=== PATIENT | male | born 1945 | race Caucasian/White ===

== ENCOUNTER → 2023-10-11 | Outpatient (CLI) | payer MEDICARE ==
--- NOTE | 2023-10-11 08:47 | XR ---
EXAMINATION TYPE: XR chest 2V DATE OF EXAM: 10/11/2023 COMPARISON: NONE HISTORY: Shortness of breath TECHNIQUE: Frontal and lateral views of the chest are obtained. FINDINGS: Scattered senescent parenchymal changes noted. Hyperinflation compatible with COPD. No evidence for infiltrate. No evidence for atelectasis. Heart size is stable. Mediastinal structures are stable and grossly unremarkable. No evidence for hilar prominence. Degenerative changes dorsal spine. IMPRESSION: 1. No evidence for acute pulmonary disease.
== END | disposition home or self-care (01) ==
LOC: RADXRMAIN 08:29
PROVIDERS: ATTEND Internal Medicine
DX: J45.909 Unspecified asthma, uncomplicated (principal); R05.9 Cough, unspecified
CPT/HCPCS: 71046

== ENCOUNTER → 2024-01-09 | Outpatient (CLI) | payer MEDICARE ==
[2024-01-09 23:27] LABS: Alternaria alternata IgE <0.10 kU/L; Aspergillus fumagatus IgE <0.10 kU/L; Birch IgE <0.10 kU/L; Cat Epith & Dander IgE 9.13 kU/L; Cladosporian herbarum IgE <0.10 kU/L; Cockroach IgE 0.19 kU/L; Dermato. farinae IgE 1.14 kU/L; Dog Dander IgE 0.22 kU/L; Elm IgE 0.13 kU/L; Maple (Box Elder) IgE 0.63 kU/L; Ragweed,Common IgE <0.10 kU/L; Red Top (Bentgrass) IgE 1.94 kU/L
== END | disposition home or self-care (01) ==
LOC: LABWHC1 10:39
PROVIDERS: ATTEND Internal Medicine Critical Care Medicine
DX: J45.30 Mild persistent asthma, uncomplicated (principal)
CPT/HCPCS: 36415; 82785; 86003

== ENCOUNTER → 2024-03-26 | Outpatient (CLI) | payer MEDICARE ==
--- NOTE | 2024-04-01 06:15 | P.PCN ---
Date of Procedure: 03/26/24 Operative Findings: Home sleep study reports Date of service is 03/26/2024 Pertinent history 78-year-old male patient with known history of obstructive sleep apnea who has been maintained on CPAP therapy and over the years the patient was treated with a CPAP pressure of 10 cm of water. He is using an older generation [employer] CPAP unit and is using a comfort gel nasal mask. The patient was interested in updating his CPAP machine. The home sleep study was ordered to reestablish diagnosis and proceed with ongoing treatment. He also has history of mild intermittent bronchial asthma and allergies. Physical findings The patient is weighing 214 pounds with a body mass index of 34.5 Technical description The [employer] ApneaLink system was used to complete his home sleep study. This is a type III home sleep study evaluation. The total recording duration was 7 hours and 59 minutes. The study started at 11:10 PM and ended at 7:09 AM. There was a total of 3 hours and 58 minutes of flow monitoring and 7 hours and 45 minutes of oxygen saturation monitoring. Results Respiratory analysis showed a total of 8 obstructive apneas and 47 obstructive hypopneas. Noted the flow signal was lost during the study and there was only a total of 3 hours and 58 minutes of flow monitoring. Nevertheless, the patient was confirmed to have obstructive sleep apnea and the resulting AHI was 13.9. Oxygenation analysis The average pulse ox during sleep was 93% with a minimum pulse ox of 88%. No major desaturations encountered Cardiac summary Average heart rate was 55 with a minimum heart rate of 49 and the maximum heart rate of 74 Assessment Obstructive sleep apnea with an AHI of 13.9 Chronic hypersomnia with an [place] score of 12 Mild intermittent bronchial asthma Hyperlipidemia Migraines Depression Hypertension Environmental allergies Plan Proceed with CPAP therapy. The patient is going to be offered an APAP machine pressures of 5/10 cm of water with a C-Flex of 3. The patient will be offered an AirFit N20 nasal mask medium size. The patient was seen back in 30 to 90 days to assess clinical response and compliancy.
== END ==
LOC: 3 N SLEEP 11:05
PROVIDERS: ATTEND Internal Medicine Critical Care Medicine
DX: G47.33 Obstructive sleep apnea (adult) (pediatric) (principal); G47.10 Hypersomnia, unspecified; J45.909 Unspecified asthma, uncomplicated; E78.5 Hyperlipidemia, unspecified; G43.909 Migraine, unspecified, not intractable, without status migrainosus; F32.A Depression, unspecified; I10 Essential (primary) hypertension; Z91.09 Other allergy status, other than to drugs and biological substances